=== PATIENT | male | born 1980 | race Caucasian/White ===

== ENCOUNTER → 2023-06-11 17:44 | Outpatient (BNVA) | payer BC, SELFPAY | PROVIDERS: Visit Provider Family Medicine | DX: Z13.6 Encounter for screening for cardiovascular disorders (principal); B37.9 Candidiasis, unspecified; M25.40 Effusion, unspecified joint | CPT/HCPCS: 80053; 80061; 84443; 84550; 85025 ==

== ENCOUNTER 2023-06-14 19:38 | Inpatient (IN) | payer BC, SELFPAY ==
[2023-06-14 19:42] VITALS: BP 188/118; PULSE 89; RESP 20; TEMP 36.6; O2SAT 95; BMI 68.8
[2023-06-14 21:28] LABS: Basophils # 0.1 10^3/uL (0.0-0.1); Basophils % 0.4 %; Eosinophils # 0.4 10^3/uL (0.0-0.8); Eosinophils % 3.4 %; Hematocrit 48.2 % (37-53); Lymphocytes # 2.9 10^3/uL (0.8-4.8); Mean Corpuscular HGB Conc 32.2 g/dL (30-55); Mean Corpuscular Hemoglobin 29.4 pg (27-33); Mean Corpuscular Volume 91.5 fl (82-101); Mean Platelet Volume 9.7 fL (7.4-10.4); Neutrophils # 7.81 10^3/uL (1.8-7.7); Nucleated Red Blood Cells % 0 %; Platelet Count 251 10^3/cmm (157-399); Red Blood Count 5.27 10^6/uL (3.85-5.65); Red Cell Distribution Width 13.2 % (12.1-15.1); White Blood Count 12.19 10^3/uL (3.29-11.43)
[2023-06-14 21:51] LABS: Alanine Aminotransferase 49 U/L (0-41); Albumin Level 3.7 g/dL (3.5-5.2); Alkaline Phosphatase 70 U/L (40-130); Anion Gap 12.2 (5-19); Aspartate Amino Transferase 29 U/L (0-40); Blood Urea Nitrogen 22 mg/dL (6-20); Carbon Dioxide 28 mmol/L (22-29); Chloride 107 mmol/L (98-107); Globulin 3.8 g/dL (1.3-4.6); Glomerular Filtration Rate 107.1 mL/min (90-130); Glucose 113 mg/dL (65-115); Osmolality Calculated 300 mOsm/kg (285-295); Potassium 4.2 mmol/L (3.5-5.1); Salicylate 0.8 mg/dL (3-10); Sodium 143 mmol/L (136-145); Total Bilirubin 0.5 mg/dL (0.15-1.2); Total Protein 7.5 g/dL (6.6-8.7)
[2023-06-14 21:55] LABS: Acetaminophen < 5.0 ug/mL (10-30); Alcohol Level < 10 mg/dL (0-10)
--- NOTE | 2023-06-14 21:55 | ED.C_ITS ---
HPI - Psych 2 General: Chief Complaint: Psychiatric Symptoms Stated Complaint: anxiety,SI Time Seen by Provider: 06/14/23 19:55 History of Present Illness: 42-year-old male presents emerged part w ith complaints of feeling severely depressed and having intermittent anxiety over recent life stressors to include relationship problems. He states that he is intermittently in a relationship with a woman that stated that she would him and then stated she would not. He states that she is in and out of his life and is causing him significant stress because he is in love with her. He states that at present he is very depressed he is very tearful while in the emergency department evaluation room. He is accompanied by a family friend who states that the patient has mention to him in the past that sometimes he would rather just hang himself than live. The patient states at present he has no intention of harming himself or anyone else but states that he needs to get some help because of his severe depression. Associated symptoms: Reports depression Review of Systems 2 General: Reports: 10 or more systems reviewed and unremarkable except in HPI and below Psych: Reports: anxiety and depression Physical Exam 2 Narrative: EXAM NARRATIVE: Constitutional: the patient appears well nourished and of normal development. Vital signs as documented. No acute distress at present. Alert and oriented-to person, place, time and situation. Head, eyes, ears, nose, mouth, throat: Normocephalic, atraumatic. Pupils-equal, round, reactive to light. No scleral icterus. Normal-appearing external ears. Normal appearing nasal turbinates, no drainage. No obvious oral lesions, posterior oropharynx without erythema or exudates. Neck: Supple, trachea is midline, no lymphadenopathy, no jugular venous distension, thyromegaly, or carotid bruits. Carotid upstrokes are brisk bilaterally. Lungs: clear to auscultation to all lung alonzo. Symmetrical rise and fall of chest, no obvious signs of increased work of breathing at present. Cardiac: Regular rate and rhythm, positive S1, S2. No murmurs, rubs or gallops that I can appreciate Abdomen: Soft, non-tender to palpation, normal active bowel sounds to all quadrants. No palpable masses, no organomegaly and abdominal bruits. Extremities: 2+ pulses in the upper extremities that are equal bilaterally, 2+ pulses in the lower extremities that are equal bilaterally. Non-edematous. Moves all extremities well, sensation to all extremities are noted. Skin: Warm, dry, intact. Psychiatric: Depressed, tearful, cooperative, normal thought process, Course 2 Vital Signs: Vital signs: Vital Signs Temperature 98 F 06/14/23 19:42 Pulse Rate 89 06/14/23 19:42 Respiratory Rate 20 H 06/14/23 19:42 Blood Pressure 188/118 06/14/23 19:42 Pulse Oximetry 95 06/14/23 19:42 MDM - Psych Medical Decision Making Physical exam completed and documented, I will obtain with laboratory evaluation for psychiatric medical clearance and contact the behavioral health physician for admission of the patient for additional evaluation treatment and care. Medical Records I reviewed the patient's medical records. Lab Data I reviewed the patient's lab results. 06/14/23 21:23 06/14/23 21:23 Laboratory Results WBC 12.19 10^3/uL (3.29-11.43) H 06/14/23 21:23 RBC 5.27 10^6/uL (3.85-5.65) 06/14/23 21:23 Hgb 15.50 g/dL (11.27-16.99) 06/14/23 21:23 Hct 48.2 % (37-53) 06/14/23 21:23 MCV 91.5 fl (82-101) 06/14/23 21:23 MCH 29.4 pg (27-33) 06/14/23 21:23 MCHC 32.2 g/dL (30-55) 06/14/23 21:23 RDW 13.2 % (12.1-15.1) 06/14/23 21:23 Plt Count 251 10^3/cmm (157-399) 06/14/23 21:23 MPV 9.7 fL (7.4-10.4) 06/14/23 21:23 Neut % (Auto) 64.0 % 06/14/23 21:23 Lymph % (Auto) 24.0 % 06/14/23 21:23 [place] % (Auto) 8.0 % 06/14/23 21:23 Eos % (Auto) 3.4 % 06/14/23 21:23 Baso % (Auto) 0.4 % 06/14/23 21:23 Neut # (Auto) 7.81 10^3/uL (1.8-7.7) H 06/14/23 21:23 Lymph # (Auto) 2.9 10^3/uL (0.8-4.8) 06/14/23 21:23 [place] # (Auto) 1.0 10^3/uL (0.2-0.9) H 06/14/23 21:23 Eos # (Auto) 0.4 10^3/uL (0.0-0.8) 06/14/23 21:23 Baso # (Auto) 0.1 10^3/uL (0.0-0.1) 06/14/23 21:23 Nucleated RBC % (auto) 0 % 06/14/23 21:23 Nucleated RBCs # 0.0 /100WBC 06/14/23 21:23 Sodium 143 mmol/L (136-145) 06/14/23 21:23 Potassium 4.2 mmol/L (3.5-5.1) 06/14/23 21:23 Chloride 107 mmol/L (98-107) 06/14/23 21:23 Carbon Dioxide 28 mmol/L (22-29) 06/14/23 21:23 Anion Gap 12.2 (5-19) 06/14/23 21:23 BUN 22 mg/dL (6-20) H 06/14/23 21:23 Creatinine 0.8 mg/dL (0.7-1.2) 06/14/23 21:23 GFR Calculation 107.1 mL/min (90-130) 06/14/23 21:23 Glucose 113 mg/dL (65-115) 06/14/23 21:23 Calculated Osmolality 300 mOsm/kg (285-295) H 06/14/23 21:23 Calcium 9.0 mg/dL (8.5-10.5) 06/14/23 21:23 Total Bilirubin 0.5 mg/dL (0.15-1.2) 06/14/23 21:23 AST 29 U/L (0-40) 06/14/23 21:23 ALT 49 U/L (0-41) H 06/14/23 21:23 Alkaline Phosphatase 70 U/L (40-130) 06/14/23 21:23 Total Protein 7.5 g/dL (6.6-8.7) 06/14/23 21:23 Albumin 3.7 g/dL (3.5-5.2) 06/14/23 21:23 Globulin 3.8 g/dL (1.3-4.6) 06/14/23 21:23 Salicylates 0.8 mg/dL (3-10) L 06/14/23 21:23 Urine Opiates Screen Negative ng/mL (Negative) 06/14/23 21:30 Acetaminophen < 5.0 ug/mL (10-30) L 06/14/23 21:23 Ur Barbiturates Screen Negative ng/mL (Negative) 06/14/23 21:30 Ur Phencyclidine Scrn Negative ng/mL (Negative) 06/14/23 21:30 Ur Amphetamines Screen Negative ng/mL (Negative) 06/14/23 21:30 U Benzodiazepines Scrn Negative ng/mL (Negative) 06/14/23 21:30 Urine Cocaine Screen Negative ng/mL (Negative) 06/14/23 21:30 U Marijuana (THC) Screen Negative ng/mL (Negative) 06/14/23 21:30 Ethyl Alcohol < 10 mg/dL (0-10) 06/14/23 21:23 No radiology studies performed this visit Discharge Plan Discharge Patient Disposition: Admitted As Inpatient Clinical Impression: Anxiety Depression Qualifiers: Depression Type: major depressive disorder Major depression recurrence: r ecurrent Active/Remission status: currently active Major depression episode severity: severe Psychotic features: without psychotic features Qualified Code(s): F33.2 - Major depressive disorder, recurrent severe without psychotic features Condition: Stable Coding Level of Care Code ED [employer] Education [employer] for [employer]
[2023-06-14 21:59] LABS: Amphetamines Screen Urine Negative (Negative); Barbiturates Screen Urine Negative (Negative); Benzodiazepines Screen Urine Negative (Negative); Cocaine Screen Urine Negative (Negative); Opiate Screen Urine Negative (Negative); PCP Screen Urine Negative (Negative); THC Screen Urine Negative (Negative)
[2023-06-14 22:34] LABS: Add Urine Microscopic? YES; Bilirubin Urine Neg (Negative); Blood Urine Neg (Negative); Glucose Urine UA Norm (Normal); Ketones Urine 1+ (Negative); Leukocyte Esterase Urine Negative (Negative); Nitrate Urine Negative (Negative); Protein Urine Trace (Negative); Specific Gravity, Urine 1.025 (1.005-1.030); Urine Appearance Clear (CLEAR); Urine Color Yellow (Yellow); Urobilinogen Urine 1 mg/dL (Negative); pH Urine 5 (5-7)
[2023-06-14 22:35] LABS: Bacteria Urine TRACE /hpf; RBC Urine 0-4 /hpf (0-2); Squamous Epithelial Cell Urine 0-4 /hpf (0-5); WBC Urine 0-4 /hpf (0-5)
[2023-06-14 22:38] VITALS: BP 195/142; PULSE 76; RESP 18; TEMP 36.5; O2SAT 97
[2023-06-14 22:41] VITALS: BP 184/112; PULSE 98; RESP 18; O2SAT 98
[2023-06-14] MEDS: hyDROXYzine 25 mg Capsule PO (22:45)
[2023-06-14] MEDS: cloNIDine 0.1 mg Tablet PO (22:45)
[2023-06-14] MEDS: trazodone 50 mg Tablet PO (23:39)
[2023-06-14] MEDS: OLANZapine 5 mg ODT PO (23:40)
[2023-06-15 06:00] VITALS: BP 132/89; PULSE 77; RESP 17; O2SAT 96
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
[2023-06-15 07:55] LABS: Basophils % 0.3 %; Eosinophils # 0.4 10^3/uL (0.0-0.8); Eosinophils % 3.9 %; Hematocrit 42.9 % (37-53); Lymphocytes # 2.8 10^3/uL (0.8-4.8); Lymphocytes % 27.7 %; Mean Corpuscular HGB Conc 32.6 g/dL (30-55); Mean Corpuscular Volume 91.9 fl (82-101); Mean Platelet Volume 9.5 fL (7.4-10.4); Monocytes # 0.8 10^3/uL (0.2-0.9); Monocytes % 7.8 %; Neutrophils # 6.07 10^3/uL (1.8-7.7); Nucleated Red Blood Cells % 0 %; Platelet Count 210 10^3/cmm (157-399); Red Blood Count 4.67 10^6/uL (3.85-5.65); Red Cell Distribution Width 13.3 % (12.1-15.1); White Blood Count 10.11 10^3/uL (3.29-11.43)
[2023-06-15 08:39] LABS: Anion Gap 8.9 (5-19); Blood Urea Nitrogen 25 mg/dL (6-20); Calcium 9.2 mg/dL (8.5-10.5); Carbon Dioxide 29 mmol/L (22-29); Chloride 104 mmol/L (98-107); Glomerular Filtration Rate 184.2 mL/min (90-130); Glucose 116 mg/dL (65-115); Osmolality Calculated 291 mOsm/kg (285-295); Potassium 3.9 mmol/L (3.5-5.1); Sodium 138 mmol/L (136-145)
[2023-06-15 14:00] VITALS: BP 154/87; PULSE 71; RESP 20; TEMP 36.3; O2SAT 98
[2023-06-15 19:51] VITALS: BP 177/113; PULSE 83; RESP 16; TEMP 36.7; O2SAT 98
[2023-06-16 06:00] VITALS: BP 179/113; PULSE 97; RESP 17; TEMP 36.7; O2SAT 95
[2023-06-16] MEDS: acetaminophen 325 mg Tablet 650 MG PO (07:28)
--- NOTE | 2023-06-16 08:35 | W.PM.NPUPNS ---
Subjective NPU Subjective: Patient presented today reporting that he has had no issues with the Wellbutrin being started. He reports that he is glad he came and is hopeful that the medications will help him feel more like himself. We discussed the length of stay concerned that he was having and we discussed the likelihood of discharge in the next 2 to 4 days and that being on the short side if he continues to function as he has. He denies any problems or side effects from any medications that have been given thus far and reports he is eating and sleeping okay. Mental Status Exam MSE Comments: This is a morbidly obese, white male, with limited dress and grooming and appropriate eye contact. No abnormal movements, except for significant psychomotor retardation. Cooperative with exam in mild distress. Speech was slightly decreased rate and volume. Mood described as better; affect congruent. Thought process, organized. Thought content: patient denied any suicidal or homicidal ideation, there were no delusions reported or noted, patient denied any auditory or visual hallucinations. Attention, concentration, and memory appeared intact, but none were formally tested. Alert and oriented times three. Insight and judgment appear fair. Impulse control is limited. Vitals/I&O/Wt Last Vital Signs Temp 98.1 F 06/16/23 06:00 Pulse 97 06/16/23 06:00 Resp 17 06/16/23 06:00 BP 179/113 06/16/23 06:00 Pulse Ox 95 06/16/23 06:00 O2 Del Method Room Air 06/16/23 06:00 Weight last 48 hrs Weight 194.591 kg Weight 205.477 kg Data NPU 06/15/23 07:50 06/15/23 07:50 A&P Assessment and plan (1) Depression: Qualifiers: Active/Remission status: currently active Depression Type: major depressive disorder Major depression episode severity: severe Major depression recurrence: recurrent Psychotic features: without psychotic features Qualified Code(s): F33.2 - Major depressive disorder, recurrent severe without psychotic features (2) Anxiety: (3) Screening for cardiovascular condition: (4) Candidiasis: (5) Swelling of joint: (6) Morbid obesity with BMI of 60.0-69.9, adult: Plan This is a 42-year-old white male with a long history of anxiety, depression and significant psychosocial stressors including recent relationship problems, change in work, move among others who presents open to trial of medication. 1.? Start BuSpar 10 mg p.o. twice daily. 2.? Started Wellbutrin XL 150 mg p.o. daily. 3.? Encourage individual, group, and milieu therapy. 4.? Continue q-15-minute checks for safety. Involuntary Hold Information 96 Hour Hold: 96 Hour Involuntary Admission: No Attestations NPU Medical Necessity Statement*: Inpatient hospitalization is medically necessary and the clinically appropriate intervention, at this time. We will monitor medications and make changes as indicated. Likely length of stay is 2-4 days. Coding Level of Care Code Acute Code for [facility] Diagnoses Depression F33.2 Active/Remission status: currently active Depression Type: major depressive disorder Major depression episode severity: severe Major depression recurrence: recurrent Psychotic features: without psychotic features Anxiety F41.9 Screening for cardiovascular condition Z13.6 Candidiasis B37.9 Swelling of joint M25.40 Morbid obesity with BMI of 60.0-69.9, adult E66.01; Z68.44
--- NOTE | 2023-06-16 08:36 | PC.NURSE ---
Denies avh and si/hi this morning. When asked if he was depressed there was a long pause before he answered, uhhh...not really. He also denied anxiety. Patient did endorse poor sleep and mild back pain.
[2023-06-16] MEDS: buPROPion XL (24 HR) 150 mg Tablet PO (09:41)
[2023-06-16 14:00] VITALS: BP 168/104; PULSE 93; RESP 20; TEMP 37.2; O2SAT 92
[2023-06-16] MEDS: BuSPIRONE 10 mg Tablet PO (18:27)
[2023-06-16 19:40] VITALS: BP 181/102; PULSE 93; RESP 18; TEMP 36.8; O2SAT 97
[2023-06-17 06:00] VITALS: BP 155/88; PULSE 77; RESP 20; O2SAT 96
[2023-06-17] MEDS: buPROPion XL (24 HR) 150 mg Tablet PO (08:03)
[2023-06-17] MEDS: BuSPIRONE 10 mg Tablet PO ×2 (08:03→19:52)
[2023-06-17] MEDS: nystatin powder 15 gm Btl 1 APPLIC TOPICAL (08:54)
[2023-06-17] MEDS: diclofenac 1% Topical Gel 100 gm 2 APPLIC TOPICAL ×2 (08:55→13:55)
--- NOTE | 2023-06-17 09:29 | PC.OT ---
OT EVALUATION ATTEMPTED; PATIENT IN SHOWER AND UNAVAILABLE AT THIS TIME.
[2023-06-17 14:00] VITALS: BP 178/104; PULSE 85; RESP 17; TEMP 36.4; O2SAT 95
--- NOTE | 2023-06-17 16:12 | P.NPUPN_ITS ---
Subjective NPU 2 Subjective: Patient presented today reporting that things are feeling like they are improving. He reports that the medication is working well and he denied any side effects of the medication. We discussed leaving the doses of the medications where they are for now and having him have appropriate follow-up. We discussed discharge in the morning. Mental Status Exam 2 MSE Comments: This is a morbidly obese, white male, with limited dress and grooming and appropriate eye contact. No abnormal movements, except for significant psychomotor retardation. Cooperative with exam in no acute distress. Speech was slightly decreased rate and volume. Mood described as better; affect congruent. Thought process, organized. Thought content: patient denied any suicidal or homicidal ideation, there were no delusions reported or noted, patient denied any auditory or visual hallucinations. Attention, concentration, and memory appeared intact, but none were formally tested. Alert and oriented times three. Insight and judgment appear fair. Impulse control is limited, but improving. Vitals/I&O/Wt Last Vital Signs Temp 97.6 F 06/17/23 14:00 Pulse 85 06/17/23 14:00 Resp 17 06/17/23 14:00 BP 178/104 06/17/23 14:00 Pulse Ox 95 06/17/23 14:00 O2 Del Method Room Air 06/16/23 06:00 Weight last 48 hrs Weight 194.591 kg Data NPU 06/15/23 07:50 06/15/23 07:50 A&P Assessment and plan (1) Depression: Qualifiers: Active/Remission status: currently active Depression Type: major depressive disorder Major depression episode severity: severe Major depression recurrence: recurrent Psychotic features: without psychotic features Qualified Code(s): F33.2 - Major depressive disorder, recurrent severe without psychotic features (2) Anxiety: (3) Screening for cardiovascular condition: (4) Candidiasis: (5) Swelling of joint: (6) Morbid obesity with BMI of 60.0-69.9, adult: Plan This is a 42-year-old white male with a long history of anxiety, depression and significant psychosocial stressors including recent relationship problems, change in work, move among others who presents open to trial of medication. 1.? Started BuSpar 10 mg p.o. twice daily. 2.? Started Wellbutrin XL 150 mg p.o. daily. 3.? Encourage individual, group, and milieu therapy. 4.? Continue q-15-minute checks for safety. Involuntary Hold Information 2 96 Hour Hold: 96 Hour Involuntary Admission: No Attestations NPU 2 Medical Necessity Statement*: Inpatient hospitalization is medically necessary and the clinically appropriate intervention, at this time. We will monitor medications and make changes as indicated. Likely length of stay is 1-3 days. Coding Level of Care Code Acute Code for [facility] Diagnoses Depression F33.2 Active/Remission status: currently active Depression Type: major depressive disorder Major depression episode severity: severe Major depression recurrence: recurrent Psychotic features: without psychotic features Anxiety F41.9 Screening for cardiovascular condition Z13.6 Candidiasis B37.9 Swelling of joint M25.40 Morbid obesity with BMI of 60.0-69.9, adult E66.01; Z68.44
[2023-06-17] MEDS: trazodone 50 mg Tablet PO ×2 (19:51→22:20)
[2023-06-17 20:29] VITALS: BP 174/95; PULSE 86; RESP 16; TEMP 36.6; O2SAT 98
[2023-06-18 06:00] VITALS: BP 154/96; PULSE 86; RESP 18; O2SAT 95
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
[2023-06-18 07:22] VITALS: BP 154/96; PULSE 86; RESP 18; O2SAT 95
[2023-06-18] MEDS: buPROPion XL (24 HR) 150 mg Tablet PO (08:27)
[2023-06-18] MEDS: BuSPIRONE 10 mg Tablet PO (08:27)
== END 2023-06-18 09:53 | disposition home or self-care (01) | DRG 885 ==
LOC: ER 22:06 → NP 22:34
PROVIDERS: Admitting Provider Psychiatry & Neurology Psychiatry; Emergency Provider Internal Medicine; Visit Provider Psychiatry & Neurology Psychiatry
DX: F33.2 Major depressive disorder, recurrent severe without psychotic features (principal); Z68.44 Body mass index [BMI] 60.0-69.9, adult; F41.9 Anxiety disorder, unspecified; Z81.8 Family history of other mental and behavioral disorders; Z62.812 Personal history of neglect in childhood; Z62.810 Personal history of physical and sexual abuse in childhood; Z62.811 Personal history of psychological abuse in childhood; E66.01 Morbid (severe) obesity due to excess calories
CPT/HCPCS: 36415; 80048; 80053; 80306; 80307; 81001; 85025; 97150; 97165; 99285

== ENCOUNTER → 2023-09-05 09:47 | Outpatient (BNVA) | payer BC, MEDICAID, SELFPAY | PROVIDERS: PCP Family Medicine; Visit Provider Family Medicine | DX: R73.09 Other abnormal glucose (principal) | CPT/HCPCS: 82947; 83036 ==

== ENCOUNTER → 2024-05-11 15:50 | Outpatient (BNVA) | payer BC, MEDICAID, SELFPAY | PROVIDERS: PCP Nurse Practitioner Family; Visit Provider Nurse Practitioner Family | DX: M25.512 Pain in left shoulder (principal); Z68.44 Body mass index [BMI] 60.0-69.9, adult; M25.562 Pain in left knee; M25.511 Pain in right shoulder; M25.561 Pain in right knee | CPT/HCPCS: 73030; 73562; 80053; 80061; 84443; 85025 ==

== ENCOUNTER 2024-05-19 07:10 | Outpatient (CLI) | payer BC, MEDICAID, SELFPAY ==
--- NOTE | 2024-05-19 07:15 | MR_ITS ---
WS: [id number] MRI LUMBAR SPINE NONCONTRAST TECHNIQUE: Sagittal T1, T2 and STIR imaging. Axial T1 and T2 imaging. CLINICAL INFORMATION: M54.50 - Low back pain, unspecified COMPARISON: None. FINDINGS: Counting performed from the craniocervical junction. 5 nonrib-bearing lumbar vertebral bodi es. 11 thoracic type vertebral bodies. Recommend plain film correlation prior to surgical interventi on. Mild lumbar curve. No acute compression. Disc bulging worse at L4-L5 and L5-S1. L1-L2: Mild facet arthropathy. Spinal canal and foramen are patent. L2-L3: Mild facet arthropathy. Spinal canal and foramen are patent. L3-L4: Minimal annular bulging. Moderate facet arthropathy. Mild LEFT foraminal narrowing. Spinal can al is patent. L4-L5: Mild annular bulging. Moderate facet arthropathy. Small bilateral foraminal protrusions with m oderate LEFT and mild RIGHT foraminal narrowing. L5-S1: Shallow central disc protrusion with slight contact of the S1 nerve roots. Moderate to advance d facet arthropathy. Moderate RIGHT and mild LEFT foraminal narrowing. Disc bulging with slight impin gement on the RIGHT S1 nerve root. Visualized pelvic bony structures: Normal. Paravertebral soft tissues: Normal. MR/MR lumbar spine wo con* [id number] IMPRESSION: Some images degraded by patient motion. 1. Counting performed from the craniocervical junction. 5 nonrib-bearing lumba r vertebral bodies. 11 thoracic type vertebral bodies. Recommend plain film co rrelation prior to surgical intervention. 2. LEFT foraminal protrusion at L4-5 with moderate LEFT foraminal narrowing. 3. Shallow central protrusion L5-S1 impinges the RIGHT S1 nerve root. 4. Moderate RIGHT L5-S1 foraminal narrowing. 5. Mild LEFT L3-4 foraminal narrowing with LEFT eccentric disc bulging 6. Moderate facet arthropathy L3-L5.
== END 2024-05-19 07:11 | disposition home or self-care (01) ==
LOC: RAD 07:11
PROVIDERS: PCP Nurse Practitioner Family; Visit Provider Nurse Practitioner Family
DX: M51.26 Other intervertebral disc displacement, lumbar region (principal); M99.63 Osseous and subluxation stenosis of intervertebral foramina of lumbar region; M47.896 Other spondylosis, lumbar region
CPT/HCPCS: 72148

== ENCOUNTER 2024-05-22 10:12 | Outpatient (CLI) | payer BC, MEDICAID, SELFPAY ==
--- NOTE | 2024-05-22 10:15 | US_ITS ---
WS: [id number] RIGHT UPPER QUADRANT ULTRASOUND HISTORY: R74.8 - Abnormal levels of other serum enzymes COMPARISON: None. Quality of this examination is significantly compromised by body habitus. Liver: 20.4 cm in length. Enlarged liver is very heterogeneous. Marked attenuation. The entire liver is not well seen. It would be difficult to exclude mass or biliary duct dilatation.. Portal Vein: Not visualized. Gallbladder: Poorly visualized. Cannot exclude stones. CBD: Not visualized. Pancreas: Not visualized. Right kidney: 12.6 cm in length. Normal size and echogenicity. No hydronephrosis or mass. Aorta and IVC: Unremarkable abdominal aorta and IVC. No ascites. US/US liver [id number] IMPRESSION: 1. Extremely limited RIGHT upper quadrant ultrasound. 2. Gallbladder is not well identified. Stones would be difficult to exclude. 3. Enlarged liver. Otherwise poorly visualized.
== END 2024-05-22 10:13 | disposition home or self-care (01) ==
LOC: RAD 10:13
PROVIDERS: PCP Nurse Practitioner Family; Visit Provider Nurse Practitioner Family
DX: R16.0 Hepatomegaly, not elsewhere classified (principal); R74.8 Abnormal levels of other serum enzymes
CPT/HCPCS: 76705

== ENCOUNTER → 2025-04-22 10:32 | Outpatient (BNVA) | payer BC, MEDICAID, SELFPAY | PROVIDERS: PCP Nurse Practitioner Family; Visit Provider Nurse Practitioner Family | DX: I10 Essential (primary) hypertension (principal); F33.2 Major depressive disorder, recurrent severe without psychotic features | CPT/HCPCS: 80053; 80061; 83036; 84443; 85025 ==